=== PATIENT | female | born 1955 | race Caucasian/White ===

== ENCOUNTER → 2020-02-29 13:03 | Outpatient (BNVA) | payer OTHER, SELFPAY | PROVIDERS: Visit Provider Internal Medicine Endocrinology, Diabetes & Metabolism | DX: Z76.89 Persons encountering health services in other specified circumstances (principal) ==

== ENCOUNTER 2020-03-02 08:57 | Outpatient (REF) | payer OTHER, SELFPAY | END 2020-03-02 08:58 | disposition home or self-care (01) | LOC: HO.LAB 08:57 | PROVIDERS: Visit Provider Internal Medicine Endocrinology, Diabetes & Metabolism | DX: M81.0 Age-related osteoporosis without current pathological fracture (principal) | CPT/HCPCS: 82306; 82340; 83970; 84100; 84439; 84443 ==

== ENCOUNTER 2020-03-02 11:25 | Outpatient (REF) | payer OTHER, SELFPAY ==
[2020-03-02 12:31] LABS: Creatinine, mg/dL 52.41
[2020-03-02 13:07] LABS: Creatinine, 24Hr Urine 1.2 G/Day (1.0-2.0); Total Volume 24 Hour Urine 2200 mL
[2020-03-03 18:02] LABS: Calcium, 24 Hr Urine 286 mg/24 h; Calcium/Creatinine Ratio 232 mg/g creat (30-275); Creatinine 24Hr Urine 1.23 g/24 h (0.50-2.15)
[2020-03-10 06:38] LABS: N-Telopeptide 70 (see note); NTXCreaRU 168 mg/dL (20-275)
== END 2020-03-02 11:26 | disposition home or self-care (01) ==
LOC: HO.LNP 11:25
PROVIDERS: Visit Provider Internal Medicine Endocrinology, Diabetes & Metabolism
DX: M81.0 Age-related osteoporosis without current pathological fracture (principal)
CPT/HCPCS: 82340; 82523; 82570

== ENCOUNTER 2020-03-20 10:33 | Outpatient (REF) | payer OTHER, SELFPAY ==
[2020-03-20 11:07] LABS: COVID-19 Test Negative (Negative)
== END 2020-03-20 10:34 | disposition home or self-care (01) ==
LOC: HO.LAB 10:33
PROVIDERS: PCP Internal Medicine; Referring Provider Emergency Medicine; Visit Provider Emergency Medicine
DX: Z20.828 Contact with and (suspected) exposure to other viral communicable diseases (principal)
CPT/HCPCS: 87635

== ENCOUNTER 2020-04-06 09:43 | Outpatient (REF) | payer OTHER, SELFPAY ==
--- NOTE | 2020-04-06 | MM_ITS ---
EXAMINATION: MM SCREENING DIGITAL BREAST TOMOSYNTHESIS, BILATERAL CLINICAL INFORMATION: Screening. Asymptomatic. The lifetime risk of breast cancer based on the Tyrer-Cuzick Model is 10.2%. COMPARISON: Mammography: April 01, 2019 and studies dating back to February 22, 2017 TECHNIQUE: Digital breast tomosynthesis is performed in both the craniocaudal and mediolateral oblique views along with computer-aided detection (CAD). Synthesized 2D images are generated from the tomosynthesis. FINDINGS: There are scattered areas of fibroglandular density (ACR BI-RADS breast composition Category b). There are no significant masses, abnormal calcifications, or other abnormalities. MM/MM tomosynthesis screening BI IMPRESSION: There are no significant changes from prior study. ASSESSMENT: BI-RADS 1: Negative RECOMMENDATION: Routine annual mammography screening. This patient's information was entered into a reminder system with a target due date for their next mammogram.
== END 2020-04-06 09:44 | disposition home or self-care (01) ==
LOC: HO.MAMMO 09:43
PROVIDERS: PCP Internal Medicine; Visit Provider Internal Medicine
DX: Z12.31 Encounter for screening mammogram for malignant neoplasm of breast (principal)
CPT/HCPCS: 77063; 77067

== ENCOUNTER 2020-04-28 08:39 | Outpatient (REF) | payer OTHER, SELFPAY ==
[2020-04-28 09:18] LABS: Total Volume 24 Hour Urine 2325 mL
[2020-04-28 10:30] LABS: Creatinine, 24Hr Urine 0.9 G/Day (1.0-2.0); Creatinine, mg/dL 39.19
[2020-04-29 17:47] LABS: Calcium, 24 Hr Urine 179 mg/24 h; Calcium/Creatinine Ratio 188 mg/g creat (30-275); Creatinine 24Hr Urine 0.95 g/24 h (0.50-2.15)
[2020-05-03 05:41] LABS: N-Telopeptide 25 (see note); NTXCreaRU 103 mg/dL (20-275)
== END 2020-04-28 08:40 | disposition home or self-care (01) ==
LOC: HO.LNP 08:39
PROVIDERS: Visit Provider Internal Medicine Endocrinology, Diabetes & Metabolism
DX: M81.0 Age-related osteoporosis without current pathological fracture (principal)
CPT/HCPCS: 82340; 82523; 82570

== ENCOUNTER 2020-05-30 09:41 | Outpatient (REF) | payer OTHER, SELFPAY ==
[2020-05-30 10:52] LABS: Cholesterol 202 mg/dL; HDL Cholesterol 68 mg/dL; LDL Cholesterol Calculated 114 mg/dl; Phosphorus 3.6 mg/dL (2.7-4.5); Triglycerides 102 mg/dL
[2020-05-30 10:54] LABS: Albumin Level 4.2 g/dL (3.5-5.0); Calcium 8.8 mg/dL (8.4-10.2)
[2020-05-30 11:22] LABS: Vitamin D 25-OH Total 46.2 ng/mL (>30)
[2020-05-31 16:16] LABS: Calcium (PTHI) 9.3 mg/dL (8.6-10.4); PTHI 94 pg/mL (14-64)
[2020-06-03 17:37] LABS: VITAMIN D (1,25 OH) D3 41 pg/mL; Vit D (1,25-Dihydroxy) Total 58 pg/mL (18-72); Vitamin D (1,25 OH) D2 17 pg/mL
== END 2020-05-30 09:42 | disposition home or self-care (01) ==
LOC: HO.10HDL 09:41
PROVIDERS: Absent Provider Internal Medicine; Visit Provider Internal Medicine Endocrinology, Diabetes & Metabolism
DX: E78.00 Pure hypercholesterolemia, unspecified (principal); E21.3 Hyperparathyroidism, unspecified
CPT/HCPCS: 36415; 80061; 82040; 82306; 82310; 82652; 83970; 84100

== ENCOUNTER → 2020-06-01 14:18 | Outpatient (BNVA) | payer OTHER, SELFPAY | PROVIDERS: PCP Internal Medicine; Visit Provider Internal Medicine Endocrinology, Diabetes & Metabolism ==

== ENCOUNTER 2020-06-22 12:54 | Outpatient (REF) | payer OTHER, SELFPAY ==
--- NOTE | ~2020-06-22 | MM_ITS ---
EXAMINATION: BONE DENSITOMETRY CLINICAL INDICATION: Age-related osteoporosis without current pathological fracture. COMPARISON: None (current study represents initial baseline exam). TECHNIQUE: Using a Treato DXA System (software version: 13.1) manufactured by [employer], dual-energy x-ray absorptiometry was performed of the lumbar spine, left hip, and left forearm radius 33%. The images are of good technical quality. Summary results are attached. FINDINGS: AP SPINE L1-L4: BMD 1.065 g/cm2, Z-score 0.8, T-score -1.0, normal. LEFT FEMUR, NECK: BMD 0.725 g/cm2, Z-score -0.7, T-score -2.2, osteopenia. LEFT FEMUR, TOTAL: BMD 0.694 g/cm2, Z-score -1.2, T-score -2.5, osteoporosis. LEFT FOREARM RADIUS 33%: BMD 0.632 g/cm2, Z-score -1.5, T-score -2.8, osteoporosis. IDENTIFIED RISK FACTORS: Osteoporosis, hyperparathyroidism, height loss, family history (parental hip fracture), history of fracture (adult), low body weight, glucocorticoids (chronic), menopause. HISTORY OF FRACTURE: Spine by patient history. MEDICATIONS: Vitamin D, Prolia, bisphosphonates. MM/XR DEXA appendicular skeleton IMPRESSION: 1. DIAGNOSIS: Osteoporosis based on the lowest T-score value of -2.8 in the forearm radius 33% applying World Health Organization criteria. 2. 10-YEAR FRACTURE RISK PREDICTION, FRAX: Major osteoporotic fracture (clinical spine, forearm, hip or shoulder) 28.5%. Hip fracture 3.6%. 3. Treatment Recommendations: NOF guidelines recommend consideration for treatment in postmenopausal women and men age 50 and older presenting with the following: -A hip or vertebral (clinical or morphometric) fracture. -T-score less than or equal to -2.5 at the femoral neck or spine after appropriate evaluation to exclude secondary causes. -Low bone mass at the hip or spine and a 10-year fracture probability by FRAX of greater than or equal to 3% for hip fracture or greater than or equal to 20% for major osteoporotic fracture based on the [place] adapted WHO algorithm. 4. Other Recommendations: All treatment decisions require clinical judgment and consideration of individual patient factors, including patient preferences, comorbidities, previous drug use, risk factors not captured in the FRAX model (e.g. frailty, falls, vitamin D deficiency, increased bone turnover, interval significant decline in bone density) and possible under or overestimation of fracture risk by FRAX. Additional medical evaluation for secondary cause of low bone mineral density may be appropriate. FUTURE SCAN RECOMMENDATION: People with diagnosed cases of osteoporosis or at high risk for fracture should have regular bone mineral density tests. For patients eligible for Medicare, routine testing is allowed once every 2 years. The testing frequency can be increased to one year for patients who have rapidly progressing disease, those who are receiving or discontinuing medical therapy to restore bone mass, or have additional risk factors.
--- NOTE | ~2020-06-22 | US_ITS ---
EXAMINATION: US THYROID CLINICAL INFORMATION: Hyperparathyroidism, unspecified COMPARISON: None TECHNIQUE: Linear transducer grayscale and color Doppler examination with attention to the region of the thyroid. FINDINGS: SIZE: Measurements of the thyroid lobes and nodules are given in sagittal, anteroposterior and transverse dimensions respectively. Right Thyroid Lobe: 5.2 x 1.4 x 1.1 cm, volume 4.3 mL. Parenchyma: The gland echotexture is homogeneous. Thyroid vascularity is normal. Left Thyroid Lobe: 4.4 x 1.2 x 1.0 cm, volume 2.6 mL. Parenchyma: The gland echotexture is homogeneous. Thyroid vascularity is slightly increased. Isthmus: 0.2 cm in maximum AP dimension. Estimated total number of nodules greater than or equal to 1 cm: 0. Business Editor nodules are described as follows: 1. Location: Right inferior. Size: 0.9 x 0.6 x 0.7 cm, volume 0.2 mL. Nodule characteristics: Composition: Solid/almost completely solid (2). Echogenicity: Hypoechoic (2). Shape: Not taller than wide (0). Margins: Smooth (0). Echogenic Foci: None (0). ACR TI-RADS total points: 4 ACR TI-RADS category: 4 NODES: No lymphadenopathy is seen in the tissue surrounding the thyroid gland. US/US thyroid IMPRESSION: Solitary right thyroid nodule. No parathyroid adenoma identified by ultrasound. ACR TI-RADS RECOMMENDATION REFERENCE: Ultrasound-guided fine-needle aspiration, followup ultrasound, no further follow up. * TR1 (0 point) and TR 2 (2 points): No FNA or follow up * TR3 (3 points): FNA if more than or equal to 2.5 cm in maximum dimension, followup ultrasound in 1, 3 and 5 years if 1.5 to 2.4 cm in maximum dimension. * TR4 (4-6 points): FNA if more than or equal to 1.5 cm in maximum dimension, followup ultrasound in 1, 2, 3 and 5 years if 1 to 1.4 cm in maximum dimension. * TR5 (more than or equal to 7 points): FNA if more than or equal to 1 cm in maximum dimension, followup ultrasound every year for 5 years if 0.5 to 0.9 cm in maximum dimension. * TR3, TR4 or TR5 nodules that are below the size threshold for follow up receive no follow up.
== END 2020-06-22 12:55 | disposition home or self-care (01) ==
LOC: HO.US 12:54
PROVIDERS: Visit Provider Internal Medicine Endocrinology, Diabetes & Metabolism
DX: Z13.820 Encounter for screening for osteoporosis (principal); E21.3 Hyperparathyroidism, unspecified; M81.0 Age-related osteoporosis without current pathological fracture; E27.49 Other adrenocortical insufficiency; Z87.81 Personal history of (healed) traumatic fracture; Z79.899 Other long term (current) drug therapy
CPT/HCPCS: 76536; 77081

== ENCOUNTER 2020-06-22 14:16 | Outpatient (REF) | payer OTHER, SELFPAY | END 2020-06-22 14:17 | disposition home or self-care (01) | LOC: HO.MAMMO 14:16 | PROVIDERS: Visit Provider Internal Medicine Endocrinology, Diabetes & Metabolism | DX: Z13.89 Encounter for screening for other disorder (principal) ==

== ENCOUNTER 2020-07-28 13:56 | Outpatient (REF) | payer OTHER, SELFPAY ==
[2020-07-29 09:17] LABS: BV Int Neg Control Negative (Negative); BV Int Pos Control Positive (Positive)
== END 2020-07-28 13:57 | disposition home or self-care (01) ==
LOC: HO.LAB 13:56
PROVIDERS: PCP Internal Medicine; Visit Provider Advanced Practice Midwife
DX: Z01.419 Encounter for gynecological examination (general) (routine) without abnormal findings (principal); N89.8 Other specified noninflammatory disorders of vagina
CPT/HCPCS: 87480; 87510; 87660

== ENCOUNTER 2020-08-30 07:58 | Outpatient (REF) | payer OTHER, SELFPAY ==
[2020-08-30 09:39] LABS: Albumin Level 4.2 g/dL (3.5-5.0); Calcium 9.4 mg/dL (8.4-10.2)
[2020-08-30 10:05] LABS: Vitamin D 25-OH Total 70.8 ng/mL (>30)
[2020-09-01 17:31] LABS: Calcium (PTHI) 9.4 mg/dL (8.6-10.4); PTHI 55 pg/mL (14-64)
[2020-09-04 00:12] LABS: N-Telopeptide 29 (see note); NTXCreaRU 32 mg/dL (20-275)
== END 2020-08-30 07:59 | disposition home or self-care (01) ==
LOC: HO.10HDL 07:58
PROVIDERS: Visit Provider Internal Medicine Endocrinology, Diabetes & Metabolism
DX: M81.0 Age-related osteoporosis without current pathological fracture (principal)
CPT/HCPCS: 36415; 82040; 82306; 82310; 82523; 83970

== ENCOUNTER 2021-02-23 11:10 | Outpatient (REF) | payer OTHER, SELFPAY ==
[2021-02-23 12:30] LABS: Albumin Level 4.6 g/dL (3.5-5.0); Calcium 10.3 mg/dL (8.4-10.2); Magnesium 2.3 mg/dL (1.6-2.6); Phosphorus 3.6 mg/dL (2.7-4.5)
[2021-02-23 12:53] LABS: Vitamin D 25-OH Total 65.8 ng/mL (>30)
[2021-02-24 16:02] LABS: Calcium (PTHI) 10.3 mg/dL (8.6-10.4); PTHI 47 pg/mL (14-64)
[2021-02-27 13:36] LABS: Alkaline Phosphatase Bone 8.1 mcg/L (5.6-29.0)
[2021-03-01 05:29] LABS: VITAMIN D (1,25 OH) D3 79 pg/mL; Vit D (1,25-Dihydroxy) Total 79 pg/mL (18-72); Vitamin D (1,25 OH) D2 <8 pg/mL
== END 2021-02-23 11:11 | disposition home or self-care (01) ==
LOC: HO.LAB 11:10
PROVIDERS: PCP Internal Medicine; Visit Provider Internal Medicine Endocrinology, Diabetes & Metabolism
DX: M81.0 Age-related osteoporosis without current pathological fracture (principal)
CPT/HCPCS: 36415; 82040; 82306; 82310; 82652; 83735; 83970; 84075; 84100

== ENCOUNTER 2021-02-28 08:27 | Outpatient (REF) | payer OTHER, SELFPAY ==
[2021-02-28 09:04] LABS: Total Volume 24 Hour Urine 1350 mL
[2021-02-28 09:55] LABS: Creatinine, 24Hr Urine 0.9 G/Day (1.0-2.0); Creatinine, mg/dL 68.66
[2021-03-01 20:21] LABS: Calcium, 24 Hr Urine 271 mg/24 h; Calcium/Creatinine Ratio 296 mg/g creat (30-275); Creatinine 24Hr Urine 0.92 g/24 h (0.50-2.15)
[2021-03-06 20:12] LABS: N-Telopeptide 24 (see note); NTXCreaRU 66 mg/dL (20-275)
== END 2021-02-28 08:28 | disposition home or self-care (01) ==
LOC: HO.LNP 08:27
PROVIDERS: Visit Provider Internal Medicine Endocrinology, Diabetes & Metabolism
DX: E21.3 Hyperparathyroidism, unspecified (principal); M81.0 Age-related osteoporosis without current pathological fracture
CPT/HCPCS: 82340; 82523; 82570

== ENCOUNTER → 2021-03-03 13:26 | Outpatient (BNVA) | payer OTHER, SELFPAY | PROVIDERS: PCP Internal Medicine; Visit Provider Internal Medicine ==

== ENCOUNTER 2021-04-14 12:03 | Outpatient (REF) | payer OTHER, SELFPAY ==
[2021-04-14 13:19] LABS: Alanine Aminotransferase 16 U/L (0-31); Albumin Level 4.3 g/dL (3.5-5.0); Alkaline Phosphatase 55 U/L (39-117); Anion Gap 10 (12-20); Aspartate Amino Transferase 22 U/L (5-31); Bilirubin Total 0.3 mg/dL (0.0-1.0); Blood Urea Nitrogen 16 mg/dL (9-16); Calcium 9.4 mg/dL (8.4-10.2); Carbon Dioxide 28 mmol/L (22-29); Chloride 105 mmol/L (96-108); Estimated Glomerular Filt Rate > 60; Glucose Random 76 mg/dL (60-115); Potassium 4.4 mmol/L (3.3-5.1); Sodium 139 mmol/L (135-145); Total Protein 6.9 g/dL (6.5-8.0)
[2021-04-14 13:40] LABS: Free T4 (Free Thyroxine) 0.82 ng/dL (0.71-1.85); Thyroid Stimulating Hormone 1.19 uIU/mL (0.32-4.0); Vitamin D 25-OH Total 39.8 ng/mL (>30)
[2021-04-18 12:37] LABS: Calcium (PTHI) 9.4 mg/dL (8.6-10.4); PTHI 68 pg/mL (14-64)
[2021-04-18 15:51] LABS: Alkaline Phosphatase Bone 8.8 mcg/L (5.6-29.0)
== END 2021-04-14 12:04 | disposition home or self-care (01) ==
LOC: HO.LAB 12:03
PROVIDERS: PCP Internal Medicine; Visit Provider Internal Medicine
DX: M81.0 Age-related osteoporosis without current pathological fracture (principal); E55.9 Vitamin D deficiency, unspecified
CPT/HCPCS: 36415; 80053; 82306; 83970; 84075; 84100; 84439; 84443

== ENCOUNTER 2021-04-16 07:45 | Outpatient (REF) | payer OTHER, SELFPAY ==
[2021-04-17 08:20] LABS: Creatinine, mg/dL 59.52
[2021-04-17 09:36] LABS: Creatinine, 24Hr Urine 1.1 G/Day (1.0-2.0); Total Volume 24 Hour Urine 1800 mL
[2021-04-19 16:51] LABS: Calcium, 24 Hr Urine 308 mg/24 h; Calcium/Creatinine Ratio 285 mg/g creat (30-275); Creatinine 24Hr Urine 1.08 g/24 h (0.50-2.15)
[2021-04-22 07:02] LABS: N-Telopeptide 48 (see note); NTXCreaRU 113 mg/dL (20-275)
== END 2021-04-16 07:46 | disposition home or self-care (01) ==
LOC: HO.LNP 07:45
PROVIDERS: Visit Provider Internal Medicine
DX: M81.0 Age-related osteoporosis without current pathological fracture (principal)
CPT/HCPCS: 82340; 82523; 82570

== ENCOUNTER 2021-04-27 08:23 | Outpatient (REF) | payer OTHER, SELFPAY ==
--- NOTE | ~2021-04-27 | MM_ITS ---
EXAMINATION: MM SCREENING DIGITAL BREAST TOMOSYNTHESIS, BILATERAL CLINICAL INFORMATION: Screening. Asymptomatic. The lifetime risk of breast cancer based on the Tyrer-Cuzick Model is 10.2%. COMPARISON: Mammography: April 06, 2020 and studies dating back to February 22, 2017 TECHNIQUE: Digital breast tomosynthesis is performed in both the craniocaudal and mediolateral oblique views along with computer-aided detection (CAD). Synthesized 2D images are generated from the tomosynthesis. FINDINGS: There are scattered areas of fibroglandular density (ACR BI-RADS breast composition Category b). There are no significant masses, abnormal calcifications, or other abnormalities. MM/MM tomosynthesis screening BI IMPRESSION: There are no significant changes from prior study. ASSESSMENT: BI-RADS 1: Negative RECOMMENDATION: Routine annual mammography screening. This patient's information was entered into a reminder system with a target due date for their next mammogram.
== END 2021-04-27 08:24 | disposition home or self-care (01) ==
LOC: HO.MAMMO 08:23
PROVIDERS: Visit Provider Internal Medicine
DX: Z12.31 Encounter for screening mammogram for malignant neoplasm of breast (principal)
CPT/HCPCS: 77063; 77067

== ENCOUNTER → 2021-05-03 08:31 | Outpatient (BNVA) | payer OTHER, SELFPAY | PROVIDERS: PCP Internal Medicine; Visit Provider Internal Medicine ==

== ENCOUNTER 2021-05-10 13:17 | Outpatient (REF) | payer OTHER, SELFPAY ==
[2021-05-10 15:21] LABS: Anion Gap 14 (12-20); Blood Urea Nitrogen 18 mg/dL (9-16); Calcium 9.9 mg/dL (8.4-10.2); Carbon Dioxide 29 mmol/L (22-29); Chloride 99 mmol/L (96-108); Estimated Glomerular Filt Rate > 60; Glucose Fasting 93 mg/dL (60-99); Potassium 4.6 mmol/L (3.3-5.1); Sodium 137 mmol/L (135-145)
== END 2021-05-10 13:18 | disposition home or self-care (01) ==
LOC: HO.LAB 13:17
PROVIDERS: PCP Internal Medicine; Visit Provider Internal Medicine
DX: M81.0 Age-related osteoporosis without current pathological fracture (principal)
CPT/HCPCS: 36415; 80048

== ENCOUNTER 2021-05-17 10:29 | Outpatient (REF) | payer OTHER, SELFPAY ==
[2021-05-17 11:55] LABS: Alanine Aminotransferase 22 U/L (0-31); Albumin Level 4.2 g/dL (3.5-5.0); Alkaline Phosphatase 65 U/L (39-117); Anion Gap 12 (12-20); Aspartate Amino Transferase 31 U/L (5-31); Bilirubin Total 0.7 mg/dL (0.0-1.0); Blood Urea Nitrogen 16 mg/dL (9-16); Calcium 9.7 mg/dL (8.4-10.2); Carbon Dioxide 28 mmol/L (22-29); Chloride 102 mmol/L (96-108); Estimated Glomerular Filt Rate > 60; Glucose Random 94 mg/dL (60-115); Phosphorus 3.8 mg/dL (2.7-4.5); Potassium 4.4 mmol/L (3.3-5.1); Sodium 138 mmol/L (135-145); Total Protein 6.9 g/dL (6.5-8.0)
[2021-05-17 11:58] LABS: Vitamin D 25-OH Total 50.3 ng/mL (>30)
[2021-05-17 12:14] LABS: Creatinine, mg/dL 51.64
[2021-05-17 13:51] LABS: Creatinine, 24Hr Urine 0.9 G/Day (1.0-2.0); Total Volume 24 Hour Urine 1725 mL
[2021-05-18 14:33] LABS: Calcium (PTHI) 9.7 mg/dL (8.6-10.4); PTHI 59 pg/mL (14-64)
[2021-05-19 17:17] LABS: Calcium, 24 Hr Urine 217 mg/24 h; Calcium/Creatinine Ratio 238 mg/g creat (30-275); Creatinine 24Hr Urine 0.91 g/24 h (0.50-2.15)
[2021-05-24 06:32] LABS: N-Telopeptide 31 (see note); NTXCreaRU 160 mg/dL (20-275)
== END 2021-05-17 10:30 | disposition home or self-care (01) ==
LOC: HO.LAB 10:29
PROVIDERS: PCP Internal Medicine; Visit Provider Internal Medicine
DX: M81.0 Age-related osteoporosis without current pathological fracture (principal); E55.9 Vitamin D deficiency, unspecified
CPT/HCPCS: 36415; 80053; 82306; 82340; 82523; 82570; 83970; 84100

== ENCOUNTER → 2021-06-12 12:02 | Outpatient (BNVA) | payer OTHER, SELFPAY | PROVIDERS: PCP Internal Medicine; Visit Provider Internal Medicine | DX: E21.3 Hyperparathyroidism, unspecified (principal); E55.9 Vitamin D deficiency, unspecified; M81.0 Age-related osteoporosis without current pathological fracture | CPT/HCPCS: 99212 ==

== ENCOUNTER → 2021-08-01 13:32 | Outpatient (BNVA) | payer OTHER, SELFPAY | PROVIDERS: PCP Internal Medicine; Visit Provider Advanced Practice Midwife | DX: Z01.419 Encounter for gynecological examination (general) (routine) without abnormal findings (principal) ==

== ENCOUNTER 2021-09-06 07:32 | Outpatient (REF) | payer OTHER, SELFPAY ==
[2021-09-06 08:52] LABS: Alanine Aminotransferase 17 U/L (0-31); Albumin Level 4.6 g/dL (3.5-5.0); Alkaline Phosphatase 73 U/L (39-117); Anion Gap 12 (12-20); Aspartate Amino Transferase 26 U/L (5-31); Bilirubin Total 0.8 mg/dL (0.0-1.0); Blood Urea Nitrogen 14 mg/dL (9-16); Calcium 9.8 mg/dL (8.4-10.2); Carbon Dioxide 27 mmol/L (22-29); Chloride 105 mmol/L (96-108); Estimated Glomerular Filt Rate > 60; Glucose Random 97 mg/dL (60-115); Phosphorus 3.5 mg/dL (2.7-4.5); Potassium 4.5 mmol/L (3.3-5.1); Sodium 139 mmol/L (135-145); Total Protein 7.3 g/dL (6.5-8.0)
[2021-09-06 09:01] LABS: Vitamin D 25-OH Total 35.8 ng/mL (>30)
[2021-09-06 09:11] LABS: Creatinine, mg/dL 44.34
[2021-09-06 11:47] LABS: Total Volume 24 Hour Urine 2250 mL
[2021-09-07 15:41] LABS: Calcium (PTHI) 9.6 mg/dL (8.6-10.4); PTHI 96 pg/mL (16-77)
[2021-09-08 16:41] LABS: Calcium, 24 Hr Urine 284 mg/24 h; Calcium/Creatinine Ratio 286 mg/g creat (30-275); Creatinine 24Hr Urine 0.99 g/24 h (0.50-2.15)
== END 2021-09-06 07:33 | disposition home or self-care (01) ==
LOC: HO.LAB 07:32
PROVIDERS: PCP Internal Medicine; Visit Provider Internal Medicine
DX: E21.3 Hyperparathyroidism, unspecified (principal); E55.9 Vitamin D deficiency, unspecified
CPT/HCPCS: 36415; 80053; 82306; 82340; 82570; 83970; 84100

== ENCOUNTER 2021-11-01 07:59 | Outpatient (REF) | payer OTHER, SELFPAY ==
[2021-11-01 09:41] LABS: Anion Gap 15 (12-20); Blood Urea Nitrogen 15 mg/dL (9-16); Calcium 9.4 mg/dL (8.4-10.2); Carbon Dioxide 27 mmol/L (22-29); Chloride 100 mmol/L (96-108); Estimated Glomerular Filt Rate > 60; Glucose Random 77 mg/dL (60-115); Potassium 4.8 mmol/L (3.3-5.1); Sodium 137 mmol/L (135-145)
[2021-11-01 09:44] LABS: Alanine Aminotransferase 17 U/L (0-31); Albumin Level 4.4 g/dL (3.5-5.0); Alkaline Phosphatase 73 U/L (39-117); Anion Gap 14 (12-20); Aspartate Amino Transferase 26 U/L (5-31); Bilirubin Total 0.5 mg/dL (0.0-1.0); Blood Urea Nitrogen 15 mg/dL (9-16); Carbon Dioxide 27 mmol/L (22-29); Chloride 101 mmol/L (96-108); Estimated Glomerular Filt Rate > 60; Glucose Random 77 mg/dL (60-115); Phosphorus 3.8 mg/dL (2.7-4.5); Sodium 137 mmol/L (135-145); Total Protein 7.4 g/dL (6.5-8.0)
[2021-11-01 10:08] LABS: Vitamin D 25-OH Total 38.7 ng/mL (>30)
[2021-11-02 13:47] LABS: Calcium (PTHI) 9.5 mg/dL (8.6-10.4); PTHI 102 pg/mL (16-77)
== END 2021-11-01 08:00 | disposition home or self-care (01) ==
LOC: HO.LAB 07:59
PROVIDERS: PCP Internal Medicine; Visit Provider Internal Medicine
DX: E21.3 Hyperparathyroidism, unspecified (principal); E55.9 Vitamin D deficiency, unspecified
CPT/HCPCS: 36415; 80048; 80053; 82306; 82340; 82570; 83970; 84100

== ENCOUNTER 2021-11-01 09:39 | Outpatient (REF) | payer OTHER, SELFPAY ==
[2021-11-01 11:18] LABS: Creatinine, mg/dL 44.62
[2021-11-01 11:45] LABS: Total Volume 24 Hour Urine 2150 mL
[2021-11-02 18:12] LABS: Calcium, 24 Hr Urine 217 mg/24 h; Calcium/Creatinine Ratio 210 mg/g creat (30-275); Creatinine 24Hr Urine 1.03 g/24 h (0.50-2.15)
== END 2021-11-01 09:40 | disposition home or self-care (01) ==
LOC: HO.LNP 09:39
PROVIDERS: Visit Provider Internal Medicine
DX: E21.3 Hyperparathyroidism, unspecified (principal)
CPT/HCPCS: 82340; 82570

== ENCOUNTER 2022-01-22 11:16 | Outpatient (REF) | payer OTHER, SELFPAY | END 2022-01-22 11:17 | disposition home or self-care (01) | LOC: HO.HOSX 11:16 | PROVIDERS: Visit Provider Orthopaedic Surgery | DX: Z13.89 Encounter for screening for other disorder (principal) ==

== ENCOUNTER 2022-03-02 08:38 | Outpatient (REF) | payer OTHER, SELFPAY ==
[2022-03-02 10:27] LABS: Creatinine, mg/dL 52.82
[2022-03-02 15:05] LABS: Creatinine, 24Hr Urine 1.1 G/Day (1.0-2.0); Total Volume 24 Hour Urine 2050 mL
[2022-03-05 21:09] LABS: Calcium, 24 Hr Urine 283 mg/24 h; Calcium/Creatinine Ratio 251 mg/g creat (30-275); Creatinine 24Hr Urine 1.13 g/24 h (0.50-2.15)
== END 2022-03-02 08:39 | disposition home or self-care (01) ==
LOC: HO.LNP 08:38
PROVIDERS: Visit Provider Internal Medicine
DX: E21.3 Hyperparathyroidism, unspecified (principal); M81.0 Age-related osteoporosis without current pathological fracture
CPT/HCPCS: 82340; 82570

== ENCOUNTER 2022-03-03 09:09 | Outpatient (REF) | payer OTHER, SELFPAY ==
[2022-03-03 11:02] LABS: Alanine Aminotransferase 19 U/L (0-31); Albumin Level 4.6 g/dL (3.5-5.0); Alkaline Phosphatase 70 U/L (39-117); Anion Gap 13 (12-20); Aspartate Amino Transferase 26 U/L (5-31); Bilirubin Total 0.7 mg/dL (0.0-1.0); Blood Urea Nitrogen 19 mg/dL (9-16); Calcium 9.7 mg/dL (8.4-10.2); Carbon Dioxide 29 mmol/L (22-29); Chloride 100 mmol/L (96-108); Estimated Glomerular Filt Rate > 60; Glucose Random 92 mg/dL (60-115); Phosphorus 3.8 mg/dL (2.7-4.5); Potassium 4.5 mmol/L (3.3-5.1); Sodium 137 mmol/L (135-145); Total Protein 7.2 g/dL (6.5-8.0); Vitamin D 25-OH Total 31.5 ng/mL (>30)
[2022-03-05 23:28] LABS: Calcium (PTHI) 9.6 mg/dL (8.6-10.4); PTHI 63 pg/mL (16-77)
== END 2022-03-03 09:10 | disposition home or self-care (01) ==
LOC: HO.LAB 09:09
PROVIDERS: PCP Internal Medicine; Visit Provider Internal Medicine
DX: E21.3 Hyperparathyroidism, unspecified (principal); E55.9 Vitamin D deficiency, unspecified; M81.0 Age-related osteoporosis without current pathological fracture
CPT/HCPCS: 36415; 80053; 82306; 83970; 84100

== ENCOUNTER → 2022-03-23 09:01 | Outpatient (BNVA) | payer OTHER, SELFPAY | PROVIDERS: PCP Internal Medicine; Visit Provider Urology | DX: Z13.89 Encounter for screening for other disorder (principal) ==

== ENCOUNTER 2022-04-30 07:25 | Outpatient (REF) | payer OTHER, SELFPAY ==
[2022-04-30 09:07] LABS: Alanine Aminotransferase 22 U/L (0-31); Albumin Level 4.3 g/dL (3.5-5.0); Alkaline Phosphatase 74 U/L (39-117); Anion Gap 13 (12-20); Aspartate Amino Transferase 29 U/L (5-31); Bilirubin Total 0.9 mg/dL (0.0-1.0); Blood Urea Nitrogen 22 mg/dL (9-16); Calcium 9.5 mg/dL (8.4-10.2); Carbon Dioxide 27 mmol/L (22-29); Chloride 102 mmol/L (96-108); Estimated Glomerular Filt Rate > 60; Glucose Random 86 mg/dL (60-115); Phosphorus 3.5 mg/dL (2.7-4.5); Potassium 4.4 mmol/L (3.3-5.1); Sodium 138 mmol/L (135-145); Total Protein 6.8 g/dL (6.5-8.0)
[2022-04-30 09:24] LABS: Vitamin D 25-OH Total 36.3 ng/mL (>30)
[2022-05-01 13:39] LABS: Calcium (PTHI) 9.4 mg/dL (8.6-10.4); PTHI 77 pg/mL (16-77)
== END 2022-04-30 07:26 | disposition home or self-care (01) ==
LOC: HO.LAB 07:25
PROVIDERS: PCP Internal Medicine; Visit Provider Internal Medicine
DX: E55.9 Vitamin D deficiency, unspecified (principal); M81.0 Age-related osteoporosis without current pathological fracture
CPT/HCPCS: 36415; 80053; 82306; 83970; 84100

== ENCOUNTER 2022-05-02 08:20 | Outpatient (REF) | payer OTHER, SELFPAY ==
--- NOTE | ~2022-05-02 | MM_ITS ---
EXAMINATION: MM SCREENING DIGITAL BREAST TOMOSYNTHESIS, BILATERAL CLINICAL INFORMATION: Screening. Asymptomatic. The lifetime risk of breast cancer based on the Tyrer-Cuzick Model is 9%. COMPARISON: Mammography: 04/27/2021, 04/06/2020, 04/01/2019; outside mammography 09/22/2018 and 02/28/2018. TECHNIQUE: Digital breast tomosynthesis is performed in both the craniocaudal and mediolateral oblique views along with computer-aided detection (CAD). Synthesized 2D images are generated from the tomosynthesis. FINDINGS: There are scattered areas of fibroglandular density (ACR BI-RADS breast composition Category b). There are no significant masses, abnormal calcifications, or other abnormalities. Parenchymal pattern is similar to prior studies. There is no developing density or architectural abnormality. The axilla and skin contours are unremarkable. No significant changes. MM/MM tomosynthesis screening BI IMPRESSION: No mammographic evidence of malignancy. ASSESSMENT: BI-RADS 1: Negative RECOMMENDATION: Routine annual mammography screening. This patient's information was entered into a reminder system with a target due date for their next mammogram.
== END 2022-05-02 08:21 | disposition home or self-care (01) ==
LOC: HO.MAMMO 08:20
PROVIDERS: PCP Internal Medicine; Visit Provider Internal Medicine
DX: Z12.31 Encounter for screening mammogram for malignant neoplasm of breast (principal)
CPT/HCPCS: 77063; 77067

== ENCOUNTER → 2022-05-15 15:50 | Outpatient (BNVA) | payer OTHER, SELFPAY | PROVIDERS: PCP Internal Medicine; Visit Provider Urology | DX: Z13.89 Encounter for screening for other disorder (principal) ==

== ENCOUNTER 2022-06-26 09:47 | Outpatient (REF) | payer OTHER, SELFPAY ==
--- NOTE | ~2022-06-26 | US_ITS ---
EXAMINATION: US RETROPERITONEAL LIMITED (RENAL ONLY) CLINICAL INFORMATION: Hypercalciuria. COMPARISON: None available. TECHNIQUE: Real-time imaging of the kidneys. FINDINGS: RIGHT KIDNEY: 10.8 x 5.4 x 4.4 cm (SAG x AP x TRV). The kidney is normal in size, contour, and echogenicity. Renal cortical thickness is normal. No calculi or focal parenchymal lesions. No hydronephrosis. LEFT KIDNEY: 10.2 x 5.2 x 4.3 cm (SAG x AP x TRV). The kidney is normal in size, contour, and echogenicity. Renal cortical thickness is normal. No focal parenchymal lesions or hydronephrosis. Nonobstructing 3 mm calculus. US/US renal BI IMPRESSION: Nonobstructing left renal nephrolithiasis. No hydronephrosis.
--- NOTE | ~2022-06-26 | MM_ITS ---
EXAMINATION: BONE DENSITOMETRY CLINICAL INDICATION: Hyperparathyroidism, unspecified. COMPARISON: Baseline BD dated 06/22/2020. TECHNIQUE: Using a [employer] DXA System (software version: 13.1) manufactured by [employer], dual-energy x-ray absorptiometry was performed of the lumbar spine, left hip, and left forearm radius 33%. The images are of good technical quality. Summary results are attached. FINDINGS: AP SPINE L1-L4 (excluding L2): The data of L1-L4 has been changed to exclude the L2 vertebral body, because discrepant reading may well be degenerative in nature at this level may cause overestimation of lumbar spine density. Current: BMD 0.946 g/cm2, Z-score 0.0, T-score -1.9, osteopenia, 9.5% decrease from baseline (<5% change is not significant). Baseline: BMD 1.045 g/cm2. LEFT FEMUR, NECK: Current: BMD 0.770 g/cm2, Z-score -0.2, T-score -1.9, osteopenia. Baseline: BMD 0.741 g/cm2. LEFT FEMUR, TOTAL: Current: BMD 0.724 g/cm2, Z-score -0.8, T-score -2.3, osteopenia, 4.5% increase from baseline (<5% change is not significant). Baseline: BMD 0.693 g/cm2. LEFT FOREARM RADIUS 33%: BMD 0.640 g/cm2, Z-score -1.3, T-score -2.7, osteoporosis, 1.3% increase from baseline (<5% change is not significant). Baseline: BMD 0.632 g/cm2. IDENTIFIED RISK FACTORS: Osteoporosis, renal, hyperparathyroidism, height loss, low body weight, low calcium intake, family history (parental hip fracture), menopause. HISTORY OF FRACTURE: None listed. MEDICATIONS: Vitamin D, bisphosphonates. MM/XR DEXA appendicular skeleton IMPRESSION: 1. DIAGNOSIS: Osteoporosis based on the lowest T-score value of -2.7 in the forearm radius 33% applying World Health Organization criteria. 2. 10-YEAR FRACTURE RISK PREDICTION, FRAX: According to the guidelines, FRAX calculation should only be performed on patients in the osteopenia bone density category. Therefore, FRAX was not performed on this patient. 3. Treatment Recommendations: NOF guidelines recommend consideration for treatment in postmenopausal women and men age 50 and older presenting with the following: -A hip or vertebral (clinical or morphometric) fracture. -T-score less than or equal to -2.5 at the femoral neck or spine after appropriate evaluation to exclude secondary causes. -Low bone mass at the hip or spine and a 10-year fracture probability by FRAX of greater than or equal to 3% for hip fracture or greater than or equal to 20% for major osteoporotic fracture based on the [place] adapted WHO algorithm. 4. Other Recommendations: All treatment decisions require clinical judgment and consideration of individual patient factors, including patient preferences, comorbidities, previous drug use, risk factors not captured in the FRAX model (e.g. frailty, falls, vitamin D deficiency, increased bone turnover, interval significant decline in bone density) and possible under or overestimation of fracture risk by FRAX. Additional medical evaluation for secondary cause of low bone mineral density may be appropriate. FUTURE SCAN RECOMMENDATION: People with diagnosed cases of osteoporosis or at high risk for fracture should have regular bone mineral density tests. For patients eligible for Medicare, routine testing is allowed once every 2 years. The testing frequency can be increased to one year for patients who have rapidly progressing disease, those who are receiving or discontinuing medical therapy to restore bone mass, or have additional risk factors.
== END 2022-06-26 09:48 | disposition home or self-care (01) ==
LOC: HO.MAMMO 09:47
PROVIDERS: PCP Internal Medicine; Referring Provider Urology; Visit Provider Internal Medicine
DX: Z13.820 Encounter for screening for osteoporosis (principal); E21.3 Hyperparathyroidism, unspecified; R82.994 Hypercalciuria; Z78.0 Asymptomatic menopausal state
CPT/HCPCS: 76775; 77081

== ENCOUNTER 2022-07-20 07:34 | Outpatient (REF) | payer OTHER, SELFPAY ==
[2022-07-20 08:27] LABS: Alanine Aminotransferase 17 U/L (0-31); Albumin Level 4.4 g/dL (3.5-5.0); Alkaline Phosphatase 62 U/L (39-117); Anion Gap 13 (12-20); Aspartate Amino Transferase 26 U/L (5-31); Bilirubin Total 0.7 mg/dL (0.0-1.0); Blood Urea Nitrogen 17 mg/dL (9-16); Calcium 9.6 mg/dL (8.4-10.2); Carbon Dioxide 28 mmol/L (22-29); Chloride 100 mmol/L (96-108); Estimated Glomerular Filt Rate > 60; Glucose Random 99 mg/dL (60-115); Phosphorus 3.6 mg/dL (2.7-4.5); Potassium 4.5 mmol/L (3.3-5.1); Sodium 136 mmol/L (135-145); Total Protein 6.9 g/dL (6.5-8.0)
[2022-07-20 08:45] LABS: Vitamin D 25-OH Total 46.8 ng/mL (>30)
[2022-07-23 15:24] LABS: Calcium (PTHI) 9.7 mg/dL (8.6-10.4); PTHI 69 pg/mL (16-77)
== END 2022-07-20 07:35 | disposition home or self-care (01) ==
LOC: HO.LAB 07:34
PROVIDERS: Visit Provider Internal Medicine
DX: R82.994 Hypercalciuria (principal); E55.9 Vitamin D deficiency, unspecified
CPT/HCPCS: 36415; 80053; 82306; 83970; 84100

== ENCOUNTER 2022-08-06 13:41 | Outpatient (REF) | payer OTHER, SELFPAY ==
[2022-08-09 09:23] LABS: HPV mRNA E6/E7 rflx Not Detected (Not Detected)
== END 2022-08-06 13:42 | disposition home or self-care (01) ==
LOC: HO.LNP 13:41
PROVIDERS: PCP Internal Medicine; Visit Provider Advanced Practice Midwife
DX: Z01.419 Encounter for gynecological examination (general) (routine) without abnormal findings (principal); Z11.51 Encounter for screening for human papillomavirus (HPV)
CPT/HCPCS: 87624; 88142

== ENCOUNTER → 2022-08-15 14:17 | Outpatient (BNVA) | payer OTHER, SELFPAY | PROVIDERS: PCP Internal Medicine; Visit Provider Urology ==

== ENCOUNTER → 2022-08-24 07:56 | Outpatient (BNVA) | payer OTHER, SELFPAY | PROVIDERS: PCP Internal Medicine; Visit Provider Advanced Practice Midwife ==

== ENCOUNTER 2022-09-04 13:18 | Outpatient (REF) | payer OTHER, SELFPAY ==
[2022-09-05 13:06] LABS: BV Int Neg Control Negative (Negative); BV Int Pos Control Positive (Positive)
== END 2022-09-04 13:19 | disposition home or self-care (01) ==
LOC: HO.LAB 13:18
PROVIDERS: PCP Internal Medicine; Visit Provider Advanced Practice Midwife
DX: R87.618 Other abnormal cytological findings on specimens from cervix uteri (principal); N89.8 Other specified noninflammatory disorders of vagina
CPT/HCPCS: 58100; 81025; 87480; 87510; 87660; 88305

== ENCOUNTER 2022-09-07 15:26 | Outpatient (REF) | payer OTHER, SELFPAY ==
--- NOTE | ~2022-09-07 | US_ITS ---
EXAMINATION: US PELVIS CLINICAL INFORMATION: Abnormal cytologic findings on cervical specimen COMPARISON: None available. TECHNIQUE: Ultrasound of the pelvis is performed using both transabdominal and transvaginal transducers along with Doppler. Transvaginal imaging is performed due to inadequate visualization transabdominally. FINDINGS: The uterus is anteverted and measures 6.2 x 2.9 x 3.3 cm in dimension. Uterine echotexture is heterogeneous. No focal uterine lesion is seen. The endometrium does not appear thickened measuring 0.3 cm. There is a small amount of fluid in the endometrial cavity. This may be related to patient's recent endometrial biopsy. There are small nabothian cysts in the cervix. The right ovary measures 1.9 x 1 x 1.2 cm. The left ovary measures 2.6 x 1.1 x 1.3 cm. There are small focal echogenic foci in both ovaries questionable for small calcifications. Ovaries are otherwise normal. There is no fluid in the pelvis. US/US pelvic and transvaginal IMPRESSION: Normal thickness endometrium. There is a small amount of fluid in the endometrial cavity. This may be related to recent endometrial biopsy. Uterine echotexture is heterogeneous. There may be small calcifications in both ovaries.
== END 2022-09-07 15:27 | disposition home or self-care (01) ==
LOC: HO.US 15:26
PROVIDERS: PCP Internal Medicine; Visit Provider Obstetrics & Gynecology
DX: R87.618 Other abnormal cytological findings on specimens from cervix uteri (principal)
CPT/HCPCS: 76830; 76856

== ENCOUNTER → 2022-09-10 11:18 | Outpatient (BNVA) | payer OTHER, SELFPAY | PROVIDERS: PCP Internal Medicine; Visit Provider Obstetrics & Gynecology ==

== ENCOUNTER 2022-09-11 13:11 | Day surgery (SDC) | payer OTHER, SELFPAY ==
[2022-09-11] VITALS (10 sets, daily range): BP systolic 93–117; BP diastolic 50–66; PULSE 54–62; RESP 16–18; TEMP 36.7–36.8; O2SAT 94–100; BMI 19.1
--- NOTE | 2022-09-11 12:20 | HO.ANESPROP2 ---
[facility] Active Problems Active Problems: All Active Problems (Updated 09/04/22 @ 14:43 by Carlos Benitez MD) Unexplained endometrial cells on cervical Pap smear (Acute) Osteoporosis (Acute) Strain of left wrist (Acute) Hypercalciuria (Acute) Atrophic vaginitis (Acute) Encounter for annual routine gynecological examination (Acute) Squamous cell carcinoma of skin of lower lip (Acute) Screening for malignant neoplasm of colon (Acute) Anxiety (Acute) Borderline hypercholesterolemia (Acute) Hyperparathyroidism (Acute) Vitamin D deficiency (Acute) Osteoporosis (Acute) Past Medical History Medical History Anxiety Borderline hypercholesterolemia Hyperparathyroidism Osteoporosis Squamous cell carcinoma of skin of lower lip Vitamin D deficiency Family History Family History Father No problems noted. Mother Colon cancer Paternal Grandmother Breast cancer, Onset Age: 60 Surgical History Surgical History Hx laparoscopic cholecystectomy Hx of cataract surgery Hx of tonsillectomy History of Problems with Anesthesia: No Social History Social History Alcohol intake: current Alcohol intake frequency: holidays/special occasions only Patient Tobacco Use Status: Former Tobacco user Quit Date: 1969 Use of substances other than those prescribed or required for medical reasons: Yes Substance Use Type Other:: CBD Substance Use Frequency: Weekly Are you DNR?: No Advance Directives: No Advance Directives Information Provided: Yes Sexual orientation: Straight/Heterosexual Gender identity: Female Meds Allergies Allergy/AdvReac Type Severity Reaction Status Date / Time abaloparatide [From Tymlos] Allergy Intermediate swollen Verified 09/10/22 11:27 lips lanolin Allergy Intermediate Itching Verified 09/10/22 11:27 and redness Iodinated Contrast Media Allergy Unknown Rash Verified 09/10/22 11:27 adhesive tape Allergy Redness of Verified 09/10/22 11:27 Skin hepatitis B virus vaccine Allergy Rash Verified 09/10/22 11:27 iodine AdvReac Unknown Verified 09/10/22 11:27 Home Medications Medication Instructions Recorded Confirmed Last Taken Type potassium citrate 10 mEq (1,080 10 meq PO DAILY 08/06/22 Unknown History mg) tablet,extended release vitamin B comp and C no.3 15 mg-10 1 cap PO DAILY 08/06/22 Unknown History mg-50 mg-5 mg-300 mg capsule (B Complex Plus Vitamin C) cholecalciferol (vitamin D3) 25 25 mcg PO DAILY 09/04/22 Unknown History mcg (1,000 unit) capsule Exam Exam Date and Time: September 11, 2022 1220 Airway Mallampati Class: II TM Dist: >3cm Neck ROM: Full Loose/Missing/Broken Teeth: No Heart: RRR Lungs: CTA Assessment and Plan Assessment Anesthesia Assessment: Anesthesia Plan Discussed and Chart Reviewed Final Anesthetic Review History of Problems with Anesthesia: No NPO: Yes ASA Class: II Final Preanesthetic Review: Meds/Allgs Chart Reviewed, Consent Obtained/Reviewed and Anes Risks/Benef Reviewed Patient Risk: Low Procedure Risk: Low Anesthetic Plan Anesthetic Plan: GA Disposition: Standard PACU
--- OUTSIDE RECORDS SUMMARY | 2022-09-11 13:13 | XMS_ITS ---
Author Name Dallas Arthur Address [address] [place] [address] Organization [facility] Address [address] [place] [address] Care Team Providers Care Instrument Tester Name Role Phone Dallas Arthur Unavailable [phone] PROBLEMS Type Condition ICD9-CM Code [id number] Code Onset Dates Condition Status SNOMED Code Problem Family history of colon cancer Z80.0 Active 827426349 Problem Preprocedural examination Z01.818 Active [id number] Problem Encounter for screening for malignant neoplasm of colon Z12.11 Active 704965005 Problem Hx of adenomatous colonic polyps Z86.010 Active [id number] ALLERGIES Substance Reaction Event Type Date Status wine Unknown Non Drug Allergy Jan, Active Lanolin Unknown Drug Allergy Jan, Active herbs Unknown Non Drug Allergy Jan, Active Adhesive Unknown Drug Allergy Jan, Active grapes Unknown Non Drug Allergy Jan, Active ENCOUNTERS Encounter Location Date Diagnosis [facility] [address] [place] [address] Jan, [facility] [address] [place] [address] 10 Jan, 2021 Encounter for screening for malignant neoplasm of colon Z12.11 ; Preprocedural examination Z01.818 ; Hx of adenomatous colonic polyps Z86.010 and Family history of colon cancer Z80.0 IMMUNIZATIONS No Known Immunizations SOCIAL HISTORY Qualifiers Date Never Smoker REASON FOR REFERRAL FUNCTIONAL STATUS PLAN OF CARE Activity Details VITAL SIGNS Weight 120 lbs 2021-01-25 Height 66 in 2021-01-25 BMI 19.37 kg/m2 2021-01-25 Temperature 97.3 degrees Fahrenheit Blood pressure systolic 000 mm Hg Blood pressure diastolic 00 mm Hg 2021-01 MEDICATIONS Medication Instructions Dosage Frequency Start Date End Date Duration Status ALPRAZolam 0.5 MG Orally Twice a day prn 1 tablet Active Fosamax 70 MG 1 tablet 30 minutes before the first food, beverage or medicine of the day with plain water 30 day(s) Active Vitamin D 50 MCG (1999 UT) Orally Once a day 1 tablet 24h 30 day(s) Active PROCEDURES Procedure Date Ordered Result Body Site BP SCR NOT PRFRM REC REASON NOS Jan 25, 2021 TOBACCO NON-USER Jan 25, 2021 DOC MEDS VERIFIED W/PT OR RE Jan 25, 2021 COLORECTAL CA SCREEN DOC REV Jan 25, 2021 RESULTS No Results REASON FOR VISIT recall, PATIENT PRESENTS TODAY FOR A COLON SCREENING, COLON SCREENING Insurance Providers Health Insurance Type Health Plan Insurance Address Health Plan Insurance Phone Health Plan Insurance Name Health Plan Coverage Dates Member ID Patient Relationship to Subscriber Patient Address Patient Phone Patient Name Patient Date of Subscriber ID Subscriber Name Subscriber Date of Group No [employer] [address] [address] [facility] [address] [employer] ISSA [id number]
--- NOTE | 2022-09-11 14:23 | MHC.SHP ---
Pre-Procedural Eval Section A Date of Service: 09/11/22 The patient is an INPATIENT: No Changes since office visit: No Cold of Flu in the past 2 weeks, No New Medical Problems, No Changes in Medication and No Patient answered all questions The History & Physical has been completed within 30 days and I have reviewed it.: Yes Section B Chief Complaint: Other abnormal cytological findings on specimens Allergies: Allergies Allergy/AdvReac Type Severity Reaction Status Date / Time abaloparatide [From Tymlos] Allergy Intermediate swollen Verified 09/10/22 11:27 lips lanolin Allergy Intermediate Itching Verified 09/10/22 11:27 and redness Iodinated Contrast Media Allergy Unknown Rash Verified 09/10/22 11:27 adhesive tape Allergy Redness of Verified 09/10/22 11:27 Skin hepatitis B virus vaccine Allergy Rash Verified 09/10/22 11:27 iodine AdvReac Unknown Verified 09/10/22 11:27 Plan Diagnosis/Plan: Unchanged I have reviewed the history and physical and performed a pertinent physical examination on my patient. No changes have occurred unless specified. Time Spent With Patient Time: Total time managing care of this patient today ____ minutes.
--- NOTE | 2022-09-11 15:11 | PM.OP ---
Brief Operative Note Date of Service: 09/11/22 Pre-op diagnosis: Endometrial cells on Pap smear Post-op diagnosis: same (Normal endometrial cavity with no evidence of pathology) Procedure: Hysteroscopy D&C Surgeon: Carlos Benitez MD Anesthesia: GLMA Was an Rotor Casting Machine Setup Operator used for this Procedure?: No Estimated blood loss (mL): 0 Pathology: other (Endometrial Scrapping. ) Condition: stable Disposition: PACU
--- NOTE | 2022-09-11 15:12 | W.PM.OPN ---
Operative Note Operative Note Date of Service: 09/11/22 Narrative: Preop Diagnosis: Endometrial cells on Pap smear Operation: Diagnostic Hysteroscopy, Dilataion & Curettage Post Op Diagnosis: Normal endometrial cavity QBL: Minimal Anesthesia: GLMA Surgeon: Carlos Benitez MD Deputy District Customs Director: None Complication: None Pathology: Endometrial Scrapings Procedure: The patient was put in the dorsal lithotomy position, scrubbed, and draped in the usual manner. A sterile speculum was inserted in the patient's vagina. The anterior lip of the cervix was grasped with a single tooth tenaculum. The cervix was dilated up to 5 mm, then the scope was inserted in the patient's uterus. Inspection revealed Normal endometrial cavity. The Myosure Reach device was used; the scope was removed from the endometrial cavity , sharp curettings was carried on with minimal amount of tissues retrieved. At the end of the procedure, all instruments were taken out of the patient uterine and vaginal cavity. The single tooth tenaculum was removed and homeostasis was assured using pressure,. The patient tolerated the procedure well and was transferred to the PACU in a stable condition.
[2022-09-11] MEDS: Acetaminophen 325 MG TABLET 650 MG PO (15:31)
[2022-09-11] MEDS: fentaNYL citrate/PF 100 MCG/2 ML VIAL 25 MCG IVPUSH ×2 (15:33→16:05)
[2022-09-11] MEDS: oxyCODONE HCl Immed Release 5 MG TABLET PO (15:33)
--- NOTE | 2022-09-11 17:02 | PC.NURSE ---
1650 patient oob ambulated to bathroom to voidx1. steady gait. dressing at bedside. scant stain on peripad
== END 2022-09-11 17:04 | disposition home or self-care (01) ==
PROVIDERS: PCP Internal Medicine; Visit Provider Obstetrics & Gynecology
PROC: 0UDB8ZZ Extraction of Endometrium, Via Natural or Artificial Opening Endoscopic (ICD-10-PCS; CPT 58558; principal; 2022-09-11 14:30)
DX: R87.618 Other abnormal cytological findings on specimens from cervix uteri (principal); E78.00 Pure hypercholesterolemia, unspecified; E21.3 Hyperparathyroidism, unspecified; E55.9 Vitamin D deficiency, unspecified; D04.0 Carcinoma in situ of skin of lip; M81.0 Age-related osteoporosis without current pathological fracture; F41.1 Generalized anxiety disorder; Z79.899 Other long term (current) drug therapy; L23.1 Allergic contact dermatitis due to adhesives; Z91.041 Radiographic dye allergy status; Z88.7 Allergy status to serum and vaccine; Z88.8 Allergy status to other drugs, medicaments and biological substances; Z90.49 Acquired absence of other specified parts of digestive tract; Z87.891 Personal history of nicotine dependence
CPT/HCPCS: 58558; 88305; J1100; J2250; J2405; J3010

== ENCOUNTER 2023-01-10 06:55 | Outpatient (REF) | payer OTHER, SELFPAY ==
--- NOTE | ~2023-01-10 | US_ITS ---
EXAMINATION: US RETROPERITONEAL LIMITED (RENAL ONLY) CLINICAL INFORMATION: Hypercalciuria. COMPARISON: Renal ultrasound 06/26/2022. TECHNIQUE: Real-time imaging of the kidneys. Limited visualization due to bowel gas. FINDINGS: RIGHT KIDNEY: 10.4 x 4.6 x 4.5 cm (SAG x AP x TRV). No hydronephrosis. Scattered linear echogenic foci in the right kidney may represent vascular calcifications. Renal cortical thickness is normal. Limited visualization. LEFT KIDNEY: 8.5 x 5.7 x 4.6 cm (SAG x AP x TRV). No hydronephrosis. Scattered linear echogenic foci in the right kidney may represent vascular calcifications. Renal cortical thickness is normal. Limited visualization. US/US renal BI IMPRESSION: No hydronephrosis. Scattered linear echogenic foci in the right kidney may represent vascular calcifications. Limited visualization.
[2023-01-10 07:13] LABS: MANUAL DIFF FLAG NO
[2023-01-10 07:52] LABS: Basophils Absolute Auto 0.1 X10*3/uL (0.0-0.2); Basophils Percent Auto 1.1 % (0-2); Eosinophils Absolute Auto 0.1 X10*3/uL (0.0-0.4); Eosinophils Percent Auto 2.7 % (0-4); Hematocrit 41.7 % (37.0-47.0); Hemoglobin 14.1 g/dl (12.0-16.0); Imm Gran Abs Auto 0.01 X10*3/uL (0.00-0.03); Imm Gran Pct Auto 0.2 % (0.0-0.4); Lymphocytes Percent Auto 45.4 % (20-40); Mean Corpuscular HGB Conc 33.8 g/dl (31.0-35.0); Mean Corpuscular Hemoglobin 31.8 pg (27.0-33.0); Mean Corpuscular Volume 94.1 fL (80.0-98.0); Mean Platelet Volume 10.8 fL (9.4-12.3); Monocytes Absolute Auto 0.6 X10*3/uL (0.1-1.2); Monocytes Percent Auto 12.8 % (2-11); Neutrophils Absolute Auto 1.7 x10*3/uL (2.0-8.3); Neutrophils Percent Auto 37.8 % (45-73); Platelet Count 241 X10*3/uL (160-400); Red Blood Count 4.43 X10*6/uL (4.20-5.50); Red Cell Distribution Width 12.2 % (11.0-16.0); White Blood Count 4.4 X10*3/uL (4.8-10.8)
[2023-01-10 08:23] LABS: Anion Gap 15 (12-20); Blood Urea Nitrogen 14 mg/dL (9-16); Calcium 9.6 mg/dL (8.4-10.2); Carbon Dioxide 29 mmol/L (22-29); Chloride 100 mmol/L (96-108); Estimated Glomerular Filt Rate > 60; Glucose Random 74 mg/dL (60-115); Potassium 3.8 mmol/L (3.3-5.1); Sodium 140 mmol/L (135-145)
[2023-01-10 08:32] LABS: Free T4 (Free Thyroxine) 1.07 ng/dL (0.71-1.85); Thyroid Stimulating Hormone 3.09 uIU/mL (0.32-4.0)
[2023-01-11 19:33] LABS: Calcium (PTHI) 9.5 mg/dL (8.6-10.4); PTHI 43 pg/mL (16-77)
== END 2023-01-10 06:56 | disposition home or self-care (01) ==
LOC: HO.US 06:55
PROVIDERS: Absent Provider Internal Medicine Cardiovascular Disease; PCP Internal Medicine; Visit Provider Urology
DX: Z00.00 Encounter for general adult medical examination without abnormal findings (principal); R82.994 Hypercalciuria
CPT/HCPCS: 36415; 76775; 80048; 83970; 84439; 84443; 85025

== ENCOUNTER 2023-01-11 10:46 | Day surgery (SDC) | payer OTHER, SELFPAY ==
--- NOTE | 2023-01-09 13:30 | HO.ANESPROP2 ---
HPI - Anesthesia Eval Consult details Narrative: 67yo F for Upper Endoscopy with Balloon Dilitation, Colonoscopy s/p D&C Hyst 08/2022 with GA-LMA 4 PMFSH Active Problems Active Problems: All Active Problems (Updated 09/04/22 @ 14:43 by Carlos Benitez MD) Unexplained endometrial cells on cervical Pap smear (Acute) Osteoporosis (Acute) Strain of left wrist (Acute) Hypercalciuria (Acute) Atrophic vaginitis (Acute) Encounter for annual routine gynecological examination (Acute) Squamous cell carcinoma of skin of lower lip (Acute) Screening for malignant neoplasm of colon (Acute) Anxiety (Acute) Borderline hypercholesterolemia (Acute) Hyperparathyroidism (Acute) Vitamin D deficiency (Acute) Osteoporosis (Acute) Past Medical History Medical History Anxiety Borderline hypercholesterolemia Hyperparathyroidism Osteoporosis Squamous cell carcinoma of skin of lower lip Vitamin D deficiency Family History Family History Father No problems noted. Mother Colon cancer Paternal Grandmother Breast cancer, Onset Age: 60 Surgical History Surgical History Hx laparoscopic cholecystectomy Hx of cataract surgery Hx of tonsillectomy History of Problems with Anesthesia: No Social History Social History Alcohol intake: current Alcohol intake frequency: holidays/special occasions only Patient Tobacco Use Status: Former Tobacco user Quit Date: 1968 Sexual orientation: Straight/Heterosexual Gender identity: Female Meds Allergies Allergy/AdvReac Type Severity Reaction Status Date / Time abaloparatide [From Tymlos] Allergy Intermediate swollen Verified 09/10/22 11:27 lips lanolin Allergy Intermediate Itching Verified 09/10/22 11:27 and redness Iodinated Contrast Media Allergy Unknown Rash Verified 09/10/22 11:27 adhesive tape Allergy Redness of Verified 09/10/22 11:27 Skin hepatitis B virus vaccine Allergy Rash Verified 09/10/22 11:27 iodine AdvReac Unknown Verified 09/10/22 11:27 Home Medications Medication Instructions Recorded Confirmed Last Taken Type potassium citrate 10 mEq (1,080 10 meq PO DAILY 08/06/22 Unknown History mg) tablet,extended release vitamin B comp and C no.3 15 mg-10 1 cap PO DAILY 08/06/22 Unknown History mg-50 mg-5 mg-300 mg capsule (B Complex Plus Vitamin C) cholecalciferol (vitamin D3) 25 25 mcg PO DAILY 09/04/22 Unknown History mcg (1,000 unit) capsule Exam Exam Date and Time: January 09, 2023 1330 Pertinent Lab Results Pertinent Lab Results: Laboratory Tests 07/20/22 07:43 Sodium 136 Potassium 4.5 Chloride 100 Carbon Dioxide 28 BUN 17 H Creatinine 0.80 Assessment and Plan Assessment Anesthesia Assessment: Chart Reviewed Final Anesthetic Review History of Problems with Anesthesia: No
[2023-01-09 14:08] VITALS: BMI 19.7
--- OUTSIDE RECORDS SUMMARY | 2023-01-11 10:49 | XMS_ITS | Patient Health Record ---
Author Name Unknown Organization [facility] Address [address] [place] [address] Care Team Providers Care Contact Officer Name Role Phone SIMRAN BAEZ Primary Care Provider Dallas Rios [phone] ALLERGIES Allergen (clinical drug ingredient) Drug/Non Drug Allergy documented on EMR Reaction Allergy Type Onset Date Status Adhesive Unknown Allergy Active CT dye (uncoded) Unknown Allergy Act lakshmi Grapes grapes (uncoded) Unknown Allergy Act lakshmi wine (uncoded) Unknown Allergy Activ e lanolin Lanolin Unknown Drug Allergy Active Eggs or Egg-derived Products sensitivity Drug Allergy Active REASON FOR REFERRAL No Information MEDICATIONS Medication SIG (Take, Route, Frequency, Duration) Notes Start Date End Date Status Indapamide 1.25 MG 1 tablet with 2.5 mg in the morning Oral Once a day Active Estradiol 0.1 MG/GM Vaginal for 70 Active ALPRAZolam 0.5 MG 1 tablet Orally Twic e a day prn PRN Active Vitamin B Complex - as directed Orally t hree times a week Active Potassium Citrate-Citric Acid 1100-334 MG/5ML Oral for 90 Active IMMUNIZATIONS Vaccine Route Administration Date Status Comme nts Influenza Unknown 01/25/2021 Others SOCIAL HISTORY Tobacco Use: Social History Observation Description Date Details (start date - stop date) Never Smoker NA - NA Sex Assigned At : Social History Observation Description Sex Assigned At Unknown Tobacco Use/Smoking Question Answer Notes Patient is a nonsmoker Alcohol Screen Question Answer Notes Did you have a drink contain ing alcohol in the past year? Yes How often did you have a dri nk containing alcohol in the past year? 2 to 3 times a week (3 points) How many drinks did you have on a typical day when you were drinking in the past year? 1 or 2 drinks (0 point) How often did you have 6 or more drinks on one occasion in the past year? Never (0 point) Points 3 Interpretation Positive PROBLEMS Problem Type ICD Code Onset Dates Problem Status W/U Status Risk SNOMED Code Notes Problem Hx of adenomatous colonic polyps (Z86.010) Active confirmed 330142642 Problem Encounter for screening for malignant neoplasm of colon (Z12.11) Active confirmed 687161901 Problem Preprocedural examination (Z01.818) Active confirmed 372217731219539 Problem Family history of colon cancer (Z80.0) Active confirmed 809524781 Problem History of adenomatous polyp of colon (Z86.010) Active confirmed 473044162 Problem Colon cancer screening (Z12.11) Active confirmed 282135531 Problem Gastroesophageal reflux disease, unspecified whether esophagitis present (K21.9) Active confirmed 907040729 Problem Esophageal dysphagia (R13.19) Active confirmed 27029043 Encounters Encounter Location Date Provider Diagnosis [facility] Outpatient [address] [place] [phone] 01/11/2023 Dallas Arthur [facility] [address] [place] [phone] 09/14/2022 Dallas Arthur [facility] [address] [place] [phone] 11/09/2022 Dallas Arthur Colon cancer screeni ng Z12.11 ; History of adenomatous polyp of colon Z86.010 ; Esophageal dysphagia R13.19 and Gastroesophageal reflux disease, unspecified whether esophagitis present K21.9 [facility] [address] [place] [phone] 11/22/2022 Dallas Arthur [facility] [address] [place] [phone] 11/23/2022 Dallas Arthur [facility] [address] [place] [phone] 11/23/2022 Dallas Arthur Colon cancer screeni ng Z12.11 ; Esophageal dysphagia R13.19 ; History of adenomatous polyp of colon Z86.010 and Family history of colon cancer Z80.0 ASSESSMENTS Encounter Date Diagnosis Assessment Notes Treatment Notes Treatment Clinical Notes 11/09/2022 Colon cancer screeni ng (ICD-10 - Z12.11) 11/09/2022 History of adenomato us polyp of colon (ICD-10 - Z86.010) 11/23/2022 Colon cancer screeni ng (ICD-10 - Z12.11) Do not take the Indapamide the day before nor on the day of the procedures since it is a type of diuretic. 11/23/2022 Esophageal dysphagia (ICD-10 - R13.19) 11/09/2022 Esophageal dysphagia (ICD-10 - R13.19) 11/23/2022 History of adenomato us polyp of colon (ICD-10 - Z86.010) 11/09/2022 Gastroesophageal ref lux disease, unspecified whether esophagitis present (ICD-10 - K21.9) 11/23/2022 Family history of co dyana cancer (ICD-10 - Z80.0) PLAN OF TREATMENT Future Test Test Name Order Date UPPER GI ENDOSCOPY BALLOOON DILATION OF ESOPH 11/11/2022 COLONOSCOPY 11/11/2022 UPPER GI ENDOSCOPY BALLOOON DILATION OF ESOPH 11/23/2022 COLONOSCOPY 11/23/2022 Next Appt Details Provider Name:Dallas Arthur , 01/11/2023 11:50:00 AM, [address] [place] [address] , [place], [place], [phone], Insurance Providers Payer Name Payer Address Payer Phone Subscriber Number Group Number Insured Name Patient Relationship to Insured Coverage Start Date Coverage End Date [employer] [place] [address] [address] [place] [address] [id number] KANCHAN ISSA Self - patient is the insured MEDICAL (GENERAL) HISTORY Medical History History ICD Code Arlene infection of lips Osteoporosis Denies [place],DM,CVA,Lung disease,renal dise ase Squamous cell cancer of the lip Colonoscopy in February 2018 in [place] revealed a small tubular adenoma that was removed from the transverse colon; she had a colonoscopy about 5 years prior to that with removal of a polyp as well. Kidney stone Asthma Elevated Parathyroid hormone Surgical History Surgery Date(Month/Year) Tonsillectomy 1971 [facility] 2017 Squamous cell on lower lip-Moh's procedu re Left Cataract D&C
[2023-01-11 11:25] VITALS: BP 107/63; PULSE 57; RESP 18; TEMP 36.6; O2SAT 100
--- NOTE | 2023-01-11 11:56 | HO.ANESPROP2 ---
[facility] Active Problems Active Problems: All Active Problems (Updated 01/09/23 @ 13:59 by Maris Mccain RN) Unexplained endometrial cells on cervical Pap smear (Acute) Osteoporosis (Acute) Strain of left wrist (Acute) Hypercalciuria (Acute) Atrophic vaginitis (Acute) Encounter for annual routine gynecological examination (Acute) Screening for malignant neoplasm of colon (Acute) Squamous cell carcinoma of skin of lower lip (Acute) Anxiety (Acute) Borderline hypercholesterolemia (Acute) Hyperparathyroidism (Acute) Vitamin D deficiency (Acute) Osteoporosis (Acute) Past Medical History Medical History Elevated parathyroid hormone Asthma Kidney stone Squamous cell carcinoma of skin of lower lip Anxiety Borderline hypercholesterolemia Hyperparathyroidism Vitamin D deficiency Osteoporosis Family History Family History Father No problems noted. Mother Colon cancer Paternal Grandmother Breast cancer, Onset Age: 60 Family history of problems with anesthesia: No Surgical History Surgical History Hx of cataract surgery Hx laparoscopic cholecystectomy Hx of tonsillectomy History of Problems with Anesthesia: No Social History Social History Alcohol intake: current Alcohol intake frequency: holidays/special occasions only Patient Tobacco Use Status: Former Tobacco user Quit Date: 1969 Advance Directives: No Advance Directives Information Provided: Yes Sexual orientation: Straight/Heterosexual Gender identity: Female Meds Allergies Allergy/AdvReac Type Severity Reaction Status Date / Time abaloparatide [From Tymlos] Allergy Intermediate swollen Verified 09/10/22 11:27 lips lanolin Allergy Intermediate Itching Verified 09/10/22 11:27 and redness Iodinated Contrast Media Allergy Unknown Rash Verified 09/10/22 11:27 adhesive tape Allergy Redness of Verified 09/10/22 11:27 Skin hepatitis B virus vaccine Allergy Rash Verified 09/10/22 11:27 iodine AdvReac Unknown Verified 09/10/22 11:27 Active Medications: Current Medications Lactated Ringer's (Lr) 1,000 mls @ 100 mls/hr IVCONT .Q10H CELINE Ondansetron HCl (Ondansetron Hcl 4 Mg/2 Ml Vial) 4 mg IVPUSH ONCE PRN PRN Reason: Nausea and Vomiting Sodium Biphosphate/Sodium Phosphate (Sodium Phosphate,[place]-Dibasic 133 Ml Enema) 133 ml CA ONCE PRN PRN Reason: Poor Colonoscopy Prep Results Home Medications Medication Instructions Recorded Confirmed Last Taken Type potassium citrate 10 mEq (1,080 10 meq PO DAILY 08/06/22 Unknown History mg) tablet,extended release vitamin B comp and C no.3 15 mg-10 1 cap PO 3XW 08/06/22 01/09/23 Unknown History mg-50 mg-5 mg-300 mg capsule (B Complex Plus Vitamin C) alprazolam 0.5 mg tablet 0.5 mg PO BID PRN Anxiety 01/09/23 01/09/23 Unknown History Exam Exam Date and Time: January 11, 2023 1156 Height,Weight and Vital Signs: Height 5 ft 6 in Weight 55.338 kg Airway Mallampati Class: II TM Dist: >3cm Neck ROM: Full Loose/Missing/Broken Teeth: No Heart: rrr Lungs: clear Assessment and Plan Final Anesthetic Review Family History of Problems with Anesthesia: No History of Problems with Anesthesia: No NPO: Yes ASA Class: II Final Preanesthetic Review: No Changes in Pt Med Stat, Meds/Allgs Chart Reviewed, Consent Obtained/Reviewed and Anes Risks/Benef Reviewed Patient Risk: Intermediate Procedure Risk: Low Anesthetic Plan Anesthetic Plan: MAC: Disposition: Standard PACU
[2023-01-11 13:12] VITALS: BP 84/43; PULSE 55; RESP 16; TEMP 36.3; O2SAT 96
--- NOTE | 2023-01-11 13:21 | P.BOP_ITS ---
Brief Operative Note Date of Service: 01/11/23 Pre-op diagnosis: Dysphagia, Screening Post-op diagnosis: other (Hiatal Hernia, R/O EoE, R/O celiac disease, Diverticulosis) Procedure: EGD with Balloon dilation 19-20mm at EG Junction, and biopsies, and Colonoscopy to the cecum and TI. Surgeon: Dallas Arthur MD Anesthesia: MAC Was an Hazardous Material Technician used for this Procedure?: No Estimated blood loss (mL): 2.0 Pathology: other (A. Descending duodenum B. EG Junction at 38cm C. Esophagus at 25cm) Condition: stable Disposition: PACU
[2023-01-11 13:27] VITALS: BP 93/56; PULSE 54; RESP 16; O2SAT 99
[2023-01-11 13:42] VITALS: BP 107/73; PULSE 56; RESP 16; TEMP 36.3; O2SAT 100
--- NOTE | 2023-01-11 13:55 | OP_ITS ---
DATE OF SERVICE: 01/11/2023 SURGEON: Dallas Arthur MD INDICATIONS: The patient presents for evaluation of intermittent dysphagia and colorectal cancer screening in relation to her personal history of a tubular adenoma of the colon and family history of colon cancer. Full consent has been obtained from her for both procedures, including risks of bleeding and perforation. PREOPERATIVE DIAGNOSIS: POSTOPERATIVE DIAGNOSIS: PROCEDURE PERFORMED: Esophagogastroduodenoscopy with balloon dilation of gastroesophageal junction and biopsies, and colonoscopy to the cecum and terminal ileum. ESTIMATED BLOOD LOSS: COMPLICATIONS: ANESTHESIA: Monitored anesthesia care. ASSISTANTS: SPECIMENS: PREOPERATIVE DIAGNOSES: Dysphagia, personal history of a tubular adenoma of the colon, family history of colon cancer, and colorectal cancer screening. POSTOPERATIVE DIAGNOSES: Dysphagia, personal history of a tubular adenoma of the colon, family history of colon cancer, colorectal cancer screening, small hiatal hernia, mild changes of gastroesophageal reflux, rule out eosinophilic esophagitis and celiac disease, diverticulosis, internal hemorrhoids. DESCRIPTION OF PROCEDURE: The patient was placed in the left lateral decubitus position. The Olympus video gastroscope was passed in the posterior oropharynx and upper esophagus under direct vision. The scope was passed slowly to the distal esophagus. The gastroesophageal junction appeared at 38 cm. There was some slight edema, erythema, and minimal irregularity. There was no definitive stricture nor ring. The scope easily entered the stomach. There was a minimal hiatal hernia. The scope was advanced to the pylorus and the duodenum was cannulated to the descending portion. The duodenum including the bulb appeared normal without mass or ulceration. Biopsies were obtained from the duodenal bulb and 2nd and 3rd portions of duodenum to rule out celiac disease. The scope was withdrawn back into the stomach. The gastric antrum and body appeared normal with good peristalsis. The scope was retroflexed visualizing the proximal stomach carefully, which appeared normal, without any sign of mass or ulceration. The scope was straightened and withdrawn back into the esophagus. I did use a [employer] incremental balloon to dilate the gastroesophageal junction from 19 mm to 20 mm at the recommended pressure for between 30 and 60 seconds each. There was some heme noted post dilation. I did obtain biopsies at the EG junction at 38 cm as well. The scope was then withdrawn through the remainder the esophagus. The proximal esophagus did have some slight changes suggestive of possible eosinophilic esophagitis with some minimal mucosal changes of some fissuring and pallor, as well as some subtle esophageal rings. However, these almost disappeared completely with insufflation of air. I did obtain biopsies in the proximal esophagus. The scope was then withdrawn from the patient. She was turned around for the colonoscopy. The digital rectal exam revealed no abnormalities. The Olympus video pediatric colonoscope was entered into the rectum and advanced easily to the cecum. Once in the cecum, I did identify normal-appearing cecal pouch with appendiceal orifice and a normal-appearing ileocecal valve. The terminal ileum was cannulated and appeared normal. The scope was withdrawn back in the colon. The entire cecum and ileocecal valve appeared normal. The scope was then slowly withdrawn assessing all mucosal surfaces carefully. Preparation was excellent. I did not visualize any sign of polyps, colitis, nor angiodysplasias. There was a mild amount of sigmoid diverticulosis. In the rectum, the scope was retroflexed visualizing small internal hemorrhoids, but no other pathology. The rectal mucosa appeared normal. The scope was straightened and withdrawn from the patient. She tolerated the procedures well and was returned to recovery area in stable condition. IMPRESSION: 1. Small hiatal hernia, gastroesophageal reflux, status post balloon dilation of gastroesophageal junction. 2. Rule out eosinophilic esophagitis. 3. Rule out celiac disease. 4. Diverticulosis. 5. Small internal hemorrhoids. PLAN: The results of the biopsies will be checked. I would recommend a repeat colonoscopy in 5 years for further surveillance given her previous history of a tubular adenoma and her family history of colon cancer. I did recommend that she go back on omeprazole 20 mg daily for the time being. Given some evidence of reflux, today's dilation, and her intermittent symptoms of dysphagia, I would recommend that she stay on the omeprazole for 1 month and then she could stop it and use it as needed thereafter. However, if she does notice a definite improvement in her swallowing on omeprazole, she could always stay on that long-term. She was advised not to use any aspirin or NSAIDs for 1 week. This has been discussed with her in detail and instructions have been given to the patient as well. MD DEIRDRE Patterson/YULIYA / [id number] SOPHIA
== END 2023-01-11 14:25 | disposition home or self-care (01) ==
PROVIDERS: PCP Internal Medicine; Visit Provider Internal Medicine
PROC: (CPT 45378; principal; 2023-01-11 11:50)
PROC: 0DJD8ZZ Inspection of Lower Intestinal Tract, Via Natural or Artificial Opening Endoscopic (ICD-10-PCS; CPT 45378; 2023-01-11 11:50)
DX: Z12.11 Encounter for screening for malignant neoplasm of colon (principal); Z86.010 Personal history of colon polyps; Z80.0 Family history of malignant neoplasm of digestive organs; K57.30 Diverticulosis of large intestine without perforation or abscess without bleeding; K64.8 Other hemorrhoids; R13.19 Other dysphagia; K21.9 Gastro-esophageal reflux disease without esophagitis; K44.9 Diaphragmatic hernia without obstruction or gangrene; M81.0 Age-related osteoporosis without current pathological fracture; J45.909 Unspecified asthma, uncomplicated; Z79.899 Other long term (current) drug therapy; Z85.828 Personal history of other malignant neoplasm of skin; Z88.8 Allergy status to other drugs, medicaments and biological substances; Z91.041 Radiographic dye allergy status; L23.1 Allergic contact dermatitis due to adhesives; Z87.891 Personal history of nicotine dependence
CPT/HCPCS: 45378; 43249; 43239; 88305; C1726

== ENCOUNTER 2023-02-13 14:43 | Outpatient (AMB) | payer MEDICARE, BC, SELFPAY ==
--- OUTSIDE RECORDS SUMMARY | 2023-02-13 14:45 | XMS_ITS | Patient Health Record ---
Author Name Unknown Organization [facility] Address [address] [place] [address] Care Team Providers Care Construction Laborer Name Role Phone SIMRAN BAEZ Primary Care Provider Dallas Rios [phone] ALLERGIES Allergen (clinical drug ingredient) Drug/Non Drug Allergy documented on EMR Reaction Allergy Type Onset Date Status Adhesive Unknown Allergy Active CT dye (uncoded) Unknown Allergy Act lakshmi Grapes grapes (uncoded) Unknown Allergy Act lakshmi wine (uncoded) Unknown Allergy Activ e lanolin Lanolin Unknown Drug Allergy Active Eggs or Egg-derived Products sensitivity Drug Allergy Active RESULTS Component Value Reference Range Notes Pathology Reviewed date:01/22/2023 09:39:49 PM Interpretation: Performing Lab:[facility], [address] [place] [id number] Notes/Report: REASON FOR REFERRAL No Information MEDICATIONS Medication [...] of adenomatous colonic polyps (Z86.010) Active confirmed 047925636 Problem Encounter for screening for malignant neoplasm of colon (Z12.11) Active confirmed 642825149 Problem Preprocedural examination (Z01.818) Active confirmed 780981875065838 Problem Family history of colon cancer (Z80.0) Active confirmed 095544720 Problem History of adenomatous polyp of colon (Z86.010) Active confirmed 939510383 Problem Colon cancer screening (Z12.11) Active confirmed 819143033 Problem Gastroesophageal reflux disease, unspecified whether esophagitis present (K21.9) Active confirmed 844310437 Problem Esophageal dysphagia (R13.19) Active confirmed 27366790 Problem Personal history of colonic polyps (Z86.010) Active confirmed History of poly p of colon (situation) (868288270) Problem Diverticulosis of large intestine without perforation or abscess without bleeding (K57.30) Active confirmed Diverticul ar disease of colon (550506602) Problem GERD (gastroesophageal reflux disease) (K21.9) Active confirmed Gastroesophagea l reflux disease (205146802) Problem Dysphagia (R13.10) Active confirmed Dys phagia (13038083) Encounters Encounter Location Date Provider Diagnosis [facility] [address] [place] [phone] 01/11/2023 Dallas Arthur Encounter for screen ing colonoscopy Z12.11 ; Personal history of colonic polyps Z86.010 ; Family history of colon cancer Z80.0 ; Diverticulosis of large intestine without perforation or abscess without bleeding K57.30 ; Other hemorrhoids K64.8 ; GERD (gastroesophageal reflux disease) K21.9 ; Hiatal hernia K44.9 ; Other specified disease of esophagus K22.89 and Dysphagia R13.10 [facility] [address] [place] [phone] 09/14/2022 Dallas Arthur [facility] [address] [place] [phone] 11/09/2022 Dallas Arthur Colon cancer screeni ng Z12.11 ; History of adenomatous polyp of colon Z86.010 ; Esophageal dysphagia R13.19 and Gastroesophageal reflux disease, unspecified whether esophagitis present K21.9 [facility] [address] [place] [phone] 11/22/2022 Dallas Arthur [facility] [address] [place] [phone] 11/23/2022 Dallas Arthur [facility] [address] [place] [phone] 01/22/2023 Dallas Arthur [facility] [address] [place] [phone] 11/23/2022 Dallas Arthur Colon cancer screeni ng Z12.11 ; Esophageal dysphagia R13.19 ; History of adenomatous polyp of colon Z86.010 and Family history of colon cancer Z80.0 ASSESSMENTS Encounter Date Diagnosis Assessment Notes Treatment Notes Treatment Clinical Notes 01/11/2023 Encounter for screen ing colonoscopy (ICD-10 - Z12.11) 01/11/2023 Personal history of colonic polyps (ICD-10 - Z86.010) 11/09/2022 Colon cancer screeni ng (ICD-10 - Z12.11) 11/09/2022 History of adenomato us polyp of colon (ICD-10 - Z86.010) 11/23/2022 Colon cancer screeni ng (ICD-10 - Z12.11) Do not take the Indapamide the day before nor on the day of the procedures since it is a type of diuretic. 11/23/2022 Esophageal dysphagia (ICD-10 - R13.19) 01/11/2023 Family history of co dyana cancer (ICD-10 - Z80.0) 11/09/2022 Esophageal dysphagia (ICD-10 - R13.19) 11/23/2022 History of adenomato us polyp of colon (ICD-10 - Z86.010) 01/11/2023 Diverticulosis of la rge intestine without perforation or abscess without bleeding (ICD-10 - K57.30) 11/09/2022 Gastroesophageal ref lux disease, unspecified whether esophagitis present (ICD-10 - K21.9) 11/23/2022 Family history of co dyana cancer (ICD-10 - Z80.0) 01/11/2023 Other hemorrhoids (ICD-10 - K64.8) 01/11/2023 GERD (gastroesophage al reflux disease) (ICD-10 - K21.9) 01/11/2023 Hiatal hernia (ICD-1 0 - K44.9) 01/11/2023 Other specified dise ase of esophagus (ICD-10 - K22.89) 01/11/2023 Dysphagia (ICD-10 - R13.10) PLAN OF TREATMENT Future Test Test Name Order Date UPPER GI ENDOSCOPY BALLOOON DILATION OF ESOPH 11/11/2022 COLONOSCOPY 11/11/2022 UPPER GI ENDOSCOPY BALLOOON DILATION OF ESOPH 11/23/2022 COLONOSCOPY 11/23/2022 Insurance Providers Payer Name Payer Address Payer Phone Subscriber Number Group Number Insured Name Patient Relationship to Insured Coverage Start Date Coverage End Date [employer] [place] [address] [address] [place] [address] [id number] KANCHAN ISSA Self - patient is the insured MEDICAL (GENERAL) HISTORY Medical History History ICD Code Arlene infection of lips Osteoporosis Denies DE,DM,CVA,Lung disease,renal dise ase Squamous cell cancer of the lip Colonoscopy in February 2018 in [place] revealed a small tubular adenoma that was removed from the transverse colon; she had a colonoscopy about 5 years prior to that with removal of a polyp as well. Kidney stone Asthma Elevated Parathyroid hormone Surgical History Surgery Date(Month/Year) Tonsillectomy 1971 [facility] 2017 Squamous cell on lower lip-Moh's procedu re Left Cataract D&C
--- NOTE | 2023-02-13 14:51 | A.OFFVIS_ITS ---
Intake Intake Visit Reasons: 6m/US/litholink Intake Note: Patient is present for Follow Up on Lithilink & US Results Urology Med: Estradiol Antibiotic Allergy: none Blood Thinner: None Pet Care Technician Required: No Accompanied by: Self / Same As Patient Allergies abaloparatide [From Tymlos] Allergy (Intermediate, Verified 02/13/23 14:51) swollen lips lanolin Allergy (Intermediate, Verified 02/13/23 14:51) Itching and redness Iodinated Contrast Media Allergy (Unknown, Verified 02/13/23 14:51) Rash adhesive tape Allergy (Verified 02/13/23 14:51) Redness of Skin hepatitis B virus vaccine Allergy (Verified 02/13/23 14:51) Rash iodine Adverse Reaction (Verified 02/13/23 14:51) Unknown Medication List - Last Reconciled 02/13/23 by Ciaran Mitchell MD alprazolam 0.5 mg PO BID PRN estradiol 0.01%(0.1mg/gram) (Estrace) 1 g vaginal 2XW indapamide 2.5 mg PO DAILY 90 days indapamide 1.25 mg PO DAILY 90 days potassium citrate ER 10 mEq PO DAILY vitamin B comp and C no.3 (B Complex Plus Vitamin C) 1 cap PO 3XW HPI HPI Comments History of Present Illness Details Sussy is very pleasant female. She is a patient of . She is seen for the following urologic conditions - hypercalciuria - genitourinary syndrome of menopause Telemedicine Evaluation 15 min Consultation DoximBMEYE Manny Video Follow-up litholink - significant improvements. Good volume , decreased oxalate, decreased calcium, decreased sodium. Only issue is decrease in citrate. Stop taking citrate because did not tolerate - reduced indapamide at 2.5 mg - suggest padded potassium citrate Follow-up imaging in 24 hour urine in 6 months May likely benefit from daily topical estrogen or twice a week Vagifem Hypercalciuria - renal leak Primary condition is osteoporosis with hypercalciuria and elevated PTH Prior indapamide 3.75 mg Repeat laboratory investigations show borderline normal vitamin-D, high normal PTH, hypercalciuria Discussed 24 hour urine findings which show adequate fluid, low sodium, high calcium Upper level of normal range should be less than 4.0mg/kg/24hr - (calculated to approx 230mg based on Sussy's weight) 24 Hr Urine - 07/08 adequate volume, decreased oxalat e, marginal salt, good citrate, increased pH - recommend salt moderation From a urology perspective indapamide is favored medication for management of renal leak. This is due to better tolerance than hydrochlorothiazide or chlorthalidone. There are a number of recent papers in PubMed that confirm the utility of osteoporosis management in the setting of hypercalciuria using indapamide with antiresportive medications. - Catina Washington, Abiodun G, Hayley G, Poonam Montalvo , Don Marin. Hypercalciuria in Postmenopausal Women With Reduced Bone Mineral Density Is Associated With Different Mineral Metabolic Profiles: Effects of Treatment With Thiazides and Anti-resorptives. Formerly [facility] ([facility]). 2020Mar 01;8:346513. doi: 10.3389/fmed.2020.735473. PMID: 35577825; PMCID: [id number]. - Chinmay Eli, Tricia Tellez, Camille P, Emma F, Kane CADENA. Effects of short and long- term indapamide treatments on urinary calcium excretion in patients with calcium oxalate dihydrate urinary stone disease: a commercial airline pilot study. Scand J Urol Nephrol. 2012 Jun;46(2):97-101. doi: 10.3109/[id number]. Epub 2011Apr 04. PMID: 27936257 Genitourinary syndrome of menopause Longstanding topical estradiol Recommend 3 times per week with tooth paste sized amount applied per finger Alternate with Julva cream - DHEA based cream to normalize testosterone PFSH Medical History Elevated parathyroid hormone Asthma Kidney stone Squamous cell carcinoma of skin of lower lip Anxiety Borderline hypercholesterolemia Hyperparathyroidism Vitamin D deficiency Osteoporosis Surgical History Hx of cataract surgery Hx laparoscopic cholecystectomy Hx of tonsillectomy Family History Father No problems noted. Mother Colon cancer Paternal Grandmother Breast cancer, Onset Age: 60 Social History Alcohol intake: current Alcohol intake frequency: a few times a week Patient Tobacco Use Status: Former Tobacco user Quit Date: 1968 Sexual orientation: Straight/Heterosexual Gender identity: Female Female Reproductive History Menstrual Age of Menarche: 16 Review of Systems Const All systems reviewed & are unremarkable except as noted in HPI and below Reports no additional complaints Resp Reports no additional complaints GI Reports no additional complaints Reports as per HPI Musc Reports no additional complaints Physical Exam Telemedicine evaluation Appropriate responses Regular breathing rate and rhythm HEENT Head: Yes normal to inspection Ears: hearing grossly normal bilaterally Eyes General: appearance normal, both eyes and all related structures Neck Neck: Yes normal visual inspection Chest Chest palpation & inspection: normal inspection of the chest Resp Effort & Inspection: normal respiratory effort and able to speak in complete sentences Assessment & Plan Assessment & Plan (1) Hypercalciuria: Code(s): R82.994 - Hypercalciuria (2) Atrophic vaginitis: Code(s): N95.2 - Postmenopausal atrophic vaginitis Plan Six month follow-up labs and urorisk Orders: Orders Parathyroid Hormone Intact 6 Months R82.994 - Hypercalciuria Calcium 6 Months N20.0 - Calculus of kidney, R82.994 - Hypercalciuria Vitamin D 25-OH Total 6 Months N20.0 - Calculus of kidney, R82.994 - Hypercalciuria Medications: Refilled indapamide 2.5 mg PO DAILY 90 days 90 tabs 1RF N20.0 - Calculus of kidney, R82.994 - Hypercalciuria Patient Instructions: Imaging studies, laboratory and physical exam results were discussed and reviewed in detail. No major barriers to patient understanding were identified. An opportunity to ask questions regarding the treatment plan was provided. All questions were answered. The patient expressed understanding and agreement with the above treatment plan. The patient is aware they should contact our office by phone for worsening of their current condition or the appearance of new urologic symptoms. Compliance is encouraged with any medications and followup testing that is ordered. It is a privilege to participate in the urologic care of your patient. If you have any questions or concerns regarding treatment for the above conditions, or other urologic issues, please do not hesitate to contact me. The office telephone contact is [phone]. This note is constructed using voice recognition software. While every effort has been made to ensure accuracy accordion repairer errors may have been included. Yours sincerely, Dr Ciaran Mitchell MD, [facility] - Urology Providers of Expert, Compassionate Care for the Genitourinary System Telehealth Telehealth Location of provider rendering services: practice address Location of patient: address on file Patient Identification confirmed using: Name, : Yes Telehealth method: video Patient verbally consented to treatment: Yes Patient verbally consented to billing insurance company: Yes Patient informed of any privacy concerns related to visit: Yes Coding Level of Care Code Tele Est Pt Level 3 (95263) Diagnoses Hypercalciuria R82.994 Atrophic vaginitis N95.2
== END 2023-02-13 15:50 | disposition home or self-care (01) ==
LOC: HO.HUSH 14:43
PROVIDERS: PCP Internal Medicine; Visit Provider Urology
DX: R82.994 Hypercalciuria (principal); N95.2 Postmenopausal atrophic vaginitis
CPT/HCPCS: 99214

== ENCOUNTER → 2023-02-13 14:43 | Outpatient (BNVA) | payer MEDICARE, BC, SELFPAY | PROVIDERS: PCP Internal Medicine; Visit Provider Urology ==